=== PATIENT | female | born 1960 | race Caucasian/White ===

== ENCOUNTER → 2018-01-13 11:34 | Outpatient (CLI) | payer OTHER, BC, SELFPAY ==
--- NOTE | 2018-01-13 11:41 | DI.RAD.S_ITS ---
PROCEDURE: XR KUB INDICATIONS: KIDNEY STONES TECHNIQUE: One view of the abdomen acquired. COMPARISON: None. FINDINGS: Surgical changes and devices: None. Bowel: Bowel gas pattern is normal. Soft tissues: No suspicious abdominal calcifications. Visualized solid organ contours appear normal in size. Bones: No suspicious bony lesions. Age-appropriate bony degenerative changes are seen. IMPRESSION: No kidney stones are seen by plain film. Dictated by: Mak Coleman M.D. on 01/13/2018 at 11:44 Approved by: Mak Coleman M.D. on 01/13/2018 at 11:45
[2018-01-13 13:10] LABS: Calcium 10.4 mg/dL (8.4-10.2); Uric Acid 3.9 mg/dL (2.5-6.2)
[2018-01-16 15:52] LABS: Parathyroid Hormone Int 36 pg/mL (14-64)
== END ==
PROVIDERS: Visit Provider Specialist
DX: N20.0 Calculus of kidney (principal)
CPT/HCPCS: 36415; 74018; 82310; 83970; 84550

== ENCOUNTER 2022-01-20 12:23 | Emergency (ER) | payer OTHER, BC, SELFPAY ==
[2022-01-20 12:50] VITALS: BP 154/88; PULSE 61; RESP 20; TEMP 36.6; O2SAT 100; BMI 18.7
--- NOTE | 2022-01-20 17:11 | ED.FEMALEGU ---
HPI - Female Genitourinary General Chief complaint: Urogenital-Female Stated complaint: UTI since the 12/27, still symptomatic Time Seen by Provider: 01/20/22 12:44 Source: family Mode of arrival: Ambulatory History of Present Illness HPI Narrative: Patient is a 59-year-old female who presents to the emergency room today with complaint of continued urgency and frequency since December 27. States she was diagnosed with a urinary tract infection was obtained for transfer she received Bactrim then she was changed to Keflex on the and culture stated she had Enterococcus bacillus which prompted her provider to change her medications to ciprofloxacin. Patient states she took the ciprofloxacin for 3 days and finished it yesterday. States she continues to have urgency and frequency. Denies any discharge states she has an appointment set up at [facility] on February 06 and has an OBGYN appointment to insert a pessary on February 19. Also admits that she had a hysterectomy done about 25 years ago because of endometriosis. States she would lost about 15 lb in the last 2 weeks she can not eat or sleep because of the frequency and urgency. Patient's main concern today is the urinary urgency and she can not sleep. Would like something to help with the urgency. Denies flank pain shortness of breath chest pain GI or concerns. Related Data Previous Rx's Medication Instructions Recorded phenazopyridine 200 mg tablet 200 mg PO TID 5 days #15 tabs 01/20/22 (Pyridium) Allergies Allergy/AdvReac Type Severity Reaction Status Date / Time clindamycin AdvReac Severe Diarrhea Verified 01/20/22 14:39 amoxicillin AdvReac Mild Rash Verified 01/20/22 14:39 sulfamethoxazole AdvReac Mild Diarrhea Verified 01/20/22 14:39 [From Bactrim] trimethoprim [From Bactrim] AdvReac Mild Diarrhea Verified 01/20/22 14:39 Review of Systems Review of Systems Narrative: R.O.S.: General: No fever, chills or fatigue. Cardiovascular: No chest pain or palpitations Respiratory: No S.O.B. HEENT: No congestion, ear pain, rhinorrhea, sore throat or tinnitus Gastrointestinal: No nausea or vomiting : Urinary urgency and frequency Skin: No rash or associated abnormalities Musculoskeletal: No pain in muscles or joints, no limitation of range of motion, no paresthesia or numbness. ?? Neurological: Awake, alert and in not apparent distress. No Headaches, changes in vision or other related neurological concerns. Patient History Substance Use Type: does not use Exam Narrative Exam Narrative: Physical Exam: ? General: normal appearance, well developed, well nourished, alert, and awake. Not in acute distress. ? Head: Normocephalic, no lesions. Chest: Lungs CTAB, no rales, rhonchi or wheezes. ?? Heart: RRR, no murmurs, rubs or gallops. Eyes: PERRLA, EOM's full, conjunctivae clear. ? Neuro: Physiological, no localizing findings, CN3-12 intact. ?? Extremities: Warm, well perfused, FROM, no deformities, no edema. ?? Skin: Normal, no rashes, no lesions noted. ?? PSYCHIATRIC: The mood is good, no blunted affect. Speech is clear. Thought process is linear, thought content is appropriate. The voice is without significant inflection. Gastrointestinal: Soft; NT; ND; Pos BS with Neg. rebound tenderness. No scars or major deformities noted on Visual Inspection. Back: Negative CVA tenderness Initial Vital Signs Initial Vital Signs: Vital Signs Temperature 97.8 F 01/20/22 12:50 Pulse Rate 61 01/20/22 12:50 Respiratory Rate 20 01/20/22 12:50 Blood Pressure 154/88 H 01/20/22 12:50 Pulse Oximetry 100 01/20/22 12:50 Oxygen Delivery Method 01/20/22 12:50 Course Orders Ordered: Discontinued Medications Fluconazole (Fluconazole 100 Mg Tablet) 150 mg PO NOW ONE Stop: 01/20/22 17:32 Last Admin: 01/20/22 17:49 Dose: 150 mg Documented By: JACQUE Phenazopyridine HCl (Phenazopyridine 100 Mg Tablet) 200 mg PO NOW ONE Stop: 01/20/22 17:50 Last Admin: 01/20/22 17:54 Dose: 200 mg Documented By: Vital Signs Vital signs: Vital Signs - 8 hr 01/20/22 17:23 01/20/22 18:01 Temperature 97.7 F Pulse Rate 70 71 Respiratory Rate 20 18 Blood Pressure 157/87 H 169/73 H Pulse Oximetry 99 98 Oxygen Delivery Method Room Air Room Air MDM - Female Genitourinary Lab Data Labs: Urine Dip Bedside Urine Glucose Negative Bedside Urine Bilirubin - Negative Bedside Urine Ketone +/- 5 Urine Specific [place] 1.020 Bedside Urine Occult Blood - Negative Bedside Urine pH 6.0 Bedside Urine Protein - Negative Bedside Urine Urobilinogen - Negative Bedside Urine Nitrite - Negative Bedside Urine Leukocytes - Negative Esterase MDM Narrative Medical decision making narrative: This is a 15-year-old female who presents to the emergency room today with complaint continued frequency and urge after taking multiple antibiotics to relieve urinary tract infection. Urine done today was negative urinary tract infection patient still complains frequency. Has an appointment set up for the OBGYN and neurology. Oral fluconazole was ordered and given to patient today in the emergency room Pyridium was ordered and the patient's 1st dose was given in the emergency room today and other 5 doses was given to the patient as a prescription. 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 Patient agrees with plan Discharge Plan Departure Patient Disposition: Home Clinical Impression: Dysuria, Urinary frequency Instructions: DI for Urinary Tract Infection (UTI), DI for Dysuria -- Adult Activity Restrictions/Additional Instructions: *You have been diagnosed with urinary frequency and dysuria secondary to completed antibiotics for urinary tract infection. Labs rule out urinary tract infection and I have ordered medications to help with urinary urgency or frequency. Your 1st dose of both medications were given here today. He will continue with the per day Pyridium for the next 2 days. Please return to the emergency room if any emergent concerns arise. [ ] *What to do: *Please continue to take your regular medications as directed. [ ] New medication prescriptions sent to your pharmacy: [ ] [x] New medication written as a paper prescription [ ] No new medications given *Please follow up with your primary care provider in 2-3 days, call for an appointment. Let them know you were seen in the Emergency Department and that we ask that you be seen in follow up. We will electronically transmit a record of today's note if your PCP is in our system *If you do not have a primary care provider please contact the [facility] Resource line at [phone]. They will ask some questions about your medical history and help get you set up with a doctor in the community. *Return to Emergency Department if you should have any new, worsening or concerning symptoms, such as [fever greater than 101 F, shaking chills, worsening pain, persistent vomiting or other bothersome symptoms] Prescriptions: New phenazopyridine [Pyridium] 200 mg tablet 200 mg PO TID 5 Days Qty: 15 0RF Visit Report Forms: Patient Portal/API
[2022-01-20 17:23] VITALS: BP 157/87; PULSE 70; RESP 20; TEMP 36.5; O2SAT 99
[2022-01-20] MEDS: FLUCONAZOLE 100 MG TABLET 150 MG PO (17:49)
[2022-01-20] MEDS: PHENAZOPYRIDINE 100 MG TABLET 200 MG PO (17:54)
[2022-01-20 18:01] VITALS: BP 169/73; PULSE 71; RESP 18; O2SAT 98
== END 2022-01-20 18:01 | disposition home or self-care (01) ==
PROVIDERS: Emergency Provider Physician Assistant
DX: R30.0 Dysuria (principal); R35.0 Frequency of micturition
CPT/HCPCS: 81003; 99283